=== PATIENT | female | born 1930 | race Hispanic/Latino ===

== ENCOUNTER 2017-03-04 11:31 | Day surgery (SDC) | payer MEDICARE ==
[~2017-03-04 11:31] MED LIST: IOPIDINE ONE; MYDRIACYL ONE
[2017-03-04] MEDS ORDERED: IOPIDINE OD ONE ×2 (11:41→11:59)
[2017-03-04] MEDS ORDERED: MYDRIACYL OD ONE (11:59)
[2017-03-04] MEDS ORDERED: NEOFRIN OD ONE (11:59)
[2017-03-04 12:21] VITALS: BP 110/70
[2017-03-04] MEDS ORDERED: IOPIDINE ONE (13:36)
== END 2017-03-04 12:42 | disposition home or self-care (01) ==
LOC: OR 11:31
PROVIDERS: ATTEND Specialist
DX: H26.491 Other secondary cataract, right eye (principal); I11.0 Hypertensive heart disease with heart failure; I50.9 Heart failure, unspecified; I25.10 Atherosclerotic heart disease of native coronary artery without angina pectoris; E03.9 Hypothyroidism, unspecified; K21.9 Gastro-esophageal reflux disease without esophagitis; M19.90 Unspecified osteoarthritis, unspecified site; Z90.710 Acquired absence of both cervix and uterus; Z87.891 Personal history of nicotine dependence; Z95.5 Presence of coronary angioplasty implant and graft; Z95.0 Presence of cardiac pacemaker; Z98.890 Other specified postprocedural states